=== PATIENT | female | born 1970 | race African-American/Black ===

== ENCOUNTER 2017-01-07 13:34 | Inpatient (IN) ==
[2017-01-07] MEDS ORDERED: TYLENOL PO ONE (13:50)
[2017-01-07 14:06] LABS: MANUAL DIFF NEEDED? NO
[2017-01-07 14:06] LABS: URINE SOURCE CLEAN CATCH
[2017-01-07 14:14] LABS: BASO% 0.1 % (0.0-0.8); EOS# 0.03 X1000 (0.0-0.7); EOS% 0.4 % (0.0-10.0); HEMATOCRIT 41.4 % (37.0-47.0); HEMOGLOBIN 13.9 g/dL (12.0-16.0); LYMPH# 1.24 X1000 (1.2-3.4); MCH 28.4 PG (27-31); MCHC 33.6 g/dL (33-37); MCV 84.7 FL (81-99); MONO# 0.86 X1000 (0.11-0.59); MONO% 11.1 % (1.7-9.3); MPV 10.1 FL (7.4-10.4); NEUT% 72.4 % (42.2-75.2); PLT 296 X1000 (130-400); RBC 4.89 XMIL (4.2-5.4)
[2017-01-07 14:14] LABS: BILIRUBIN URINE NEGATIVE (NEGATIVE); BLOOD URINE LARGE (NEGATIVE); COLOR YELLOW; GLUCOSE URINE NEGATIVE (NEGATIVE); LEUKOCYTES URINE LARGE (NEGATIVE); NITRITE URINE NEGATIVE (NEGATIVE); PROTEIN URINE 100 mg/dL (NEGATIVE); TURBIDITY URINE HAZY (CLEAR); UROBILINOGEN URINE NORMAL (NORMAL)
[2017-01-07 14:15] LABS: URINE MICRO REVIEW NEEDED? YES
[2017-01-07 14:18] LABS: UR EPITHELIAL CELLS >10 /HPF (<10); URINE BACTERIA 2+ /HPF; URINE CULTURE NEEDED? YES; URINE WBC TNTC /HPF (<10)
[2017-01-07 14:23] LABS: URINE CASTS NONE SEEN; URINE CRYSTALS NONE SEEN; URINE SMALL ROUND CELLS NONE SEEN
[2017-01-07 14:27] LABS: AGAP 16; ALKALINE PHOSPHATASE 49 U/L (32-104); BUN 10 mg/dL (8-22); CALCIUM 9.3 mg/dL (8.8-10.2); CHLORIDE 96 mmol/L (98-107); COSMO 274; GOT 18 U/L (10-30); GPT 12 U/L (10-36); POTASSIUM 3.7 mmol/L (3.5-5.1); SODIUM 137 mmol/L (136-145); TCO2 25 mmol/L (25-35); TOTAL PROTEIN 8.5 g/dL (6.3-8.3)
[2017-01-07] MEDS ORDERED: NS 1,000 ML IV ONE (15:51)
[2017-01-07] MEDS ORDERED: TORADOL IV ONE (15:51)
[2017-01-07] MEDS ORDERED: ZOFRAN IV ONE (15:51)
--- NOTE | 2017-01-07 15:57 | PROVIDER DOCUMENTATION ---
HPI-General Adult - General Chief Complaint: Fever Stated Complaint: NAUSEA,WEAKNESS Time Seen by Provider: 01/07/17 15:12 Source: patient Allergies/Adverse Reactions: Patient Allergies Allergy/AdvReac Type Severity Reaction Status Date / Time No Known Allergies Allergy Verified 01/07/17 14:54 Home Medications: Home Medication List Medication Instructions Recorded Confirmed Last Taken Type NK [No Home Medications] 01/07/17 01/07/17 Unknown History - History of Present Illness -Gen Adult Nature of Presenting Problems: 46 year old AAF presents with c/o fever, chills, body aches for 5 days, max temp 102.5 at home. pt report she was evaluated in an UC yesterday, diagnosed with a throat infection with negative strep/flu. sent home on levaquin and tylenol #3, advil, pt reports no improvement. she has had 2 doses of levaquin without improvement. pt reports associated nausea with vomiting x 4 today, decreased appetite and generalized not feeling well. pt reports tolerating fluids intermittently all day. Review of Systems - Adult - REVIEW OF SYSTEMS - ADULT Constitutional: reports: see HPI, chills, fever Eyes: reports: no symptoms reported. denies: discharge, blurred vision, double vision Ears, Nose, Mouth & Throat: reports: no symptoms reported. denies: ear discharge, ear pain, nose pain, loose teeth, throat pain, throat swelling Cardiovascular: reports: no symptoms reported. denies: chest pain, palpitations , syncope Respiratory: reports: see HPI, cough. denies: chronic cough, shortness of breath, wheezing Gastrointestinal: reports: no symptoms reported. denies: abdominal pain, diarrhea, nausea, vomiting Genitourinary: reports: no symptoms reported. denies: dysuria, hematuria, urgency Musculoskeletal: reports: no symptoms reported. denies: bone pain, joint pain, joint swelling, neck pain Integumentary: reports: no symptoms reported. denies: hives, itching, skin sores/ulcer Neurological: reports: no symptoms reported. denies: ataxia, dizziness/vertigo , numbness, paresthesia Psychiatric: reports: no symptoms reported Endocrine: reports: no symptoms reported Hematologic/Lymphatic: reports: no symptoms reported Allergic/Immunologic: reports: no symptoms reported. denies: frequent infections All Other Systems: Reviewed and Negative Past History - Adult - PAST MEDICAL HISTORY-ADULT Review of Records: reports: Old Records Reviewed, Nursing Assessment Review, Medications Reviewed, Social history reviewed & non-contributory. Major Childhood Illnesses: reports: denies history Cardiovascular: reports: denies history Respiratory: reports: denies history Gastrointestinal: reports: denies history Obstetrical/Gynecological: reports: denies history Genitourinary: reports: other (ovarian cyst, UTI) Musculoskeletal: reports: denies history Neurological: reports: denies history Endocrine/Immune: reports: denies history Other Conditions: reports: denies history - IMMUNIZATION STATUS Childhood Immunizations: See Nurse Assessment Flu Vaccine: See Nurse Assessment - FAMILY HISTORY Family History: reviewed, not pertinent - SOCIAL HISTORY Smoking: denies, non-smoker Substance Use: none/never Alcohol Use Frequency: never Physical Exam-General - PHYSICAL EXAM-ADULT Initial Vital Signs Reviewed: Yes - CONSTITUTIONAL General Appearance: appears well, alert, no apparent distress - EYES Eyes: pink conjunctivae. negative: conjuctival exudate, meningismus, pale conjunctivae, photophobia, sclera injected, scleral icterus, subconjunctival hemorrhage - HEAD, EARS, NOSE, MOUTH & THROAT HENMT: normocephalic/atraumatic, normal ENT inspection, TMs normal, pharynx normal. negative: moist mucous membranes (dry membranes) - NECK Neck: non-tender, full range of motion, supple, normal inspection. negative: C- spine tenderness, limited range of motion, tender lateral, tender midline - RESPIRATORY Respiratory: chest non-tender, lungs clear, normal breath sounds, no pleuratic chest pain, no respiratory distress, no accessory muscle use. negative: respiratory distress, decreased breath sounds, accessory muscle use, crackles, rales, rhonchi, stridor, wheezing - CARDIOVASCULAR Cardiovascular: normal peripheral pulses, regular rate, rhythm, tachycardia - GASTROINTESTINAL (ABDOMEN) Abdominal Exam: normal bowel sounds, non tender, soft. negative: distended, guarding, rigid, rebound, tenderness, hernia, mass - LYMPHATIC Lymphatic: negative: cervical node tenderness - MUSCULOSKELETAL Back Exam: normal inspection, no CVA tenderness, no vertebral tenderness. negative: CVA tenderness, decreased range of motion, swelling, vertebral tenderness Extremity: normal range of motion, non-tender, normal gait, normal inspection, no pedal edema, no calf tenderness, normal capillary refill. negative: deformity, erythema, swelling, tenderness Peripheral Pulses: radial (R): 3+, radial (L): 3+, dorsalis-pedis (R): 3+, dorsalis-pedis (L): 3+ - SKIN Integumentary: normal color, normal turgor, warm/dry. negative: mottled, pallor , petechiae, purpura, rash - NEUROLOGIC Neurologic: grossly normal, no motor/sensory deficits - PSYCHIATRIC Psych/Mental Status: normal mood/affect, normal thought content, normal thought process, oriented x 3 Progress - PLAN OF CARE/RESULTS Progress/Plan/Lab Results: Vital Signs - 8 hr 01/07/17 13:40 01/07/17 15:41 Temperature 102.8 F H 99.6 F Pulse Rate 118 H 95 H Respiratory Rate 20 18 Blood Pressure 131/85 105/70 O2 Sat by Pulse Oximetry 100 99 Laboratory Results - last 24 hr 01/07/17 01/07/17 01/07/17 13:53 13:53 13:55 WBC 7.75 RBC 4.89 Hgb 13.9 Hct 41.4 MCV 84.7 MCH 28.4 MCHC 33.6 RDW Std Deviation 13.4 Plt Count 296 MPV 10.1 Neut % (Auto) 72.4 Lymph % (Auto) 16.0 L Hyde % (Auto) 11.1 H Eos % (Auto) 0.4 Baso % (Auto) 0.1 Neut # (Auto) 5.61 Lymph # (Auto) 1.24 Hyde # (Auto) 0.86 H Eos # (Auto) 0.03 Baso # (Auto) 0.01 Sodium Potassium Chloride Carbon Dioxide Anion Gap BUN Creatinine Estimated GFR/1.73 m2 BUN/Creatinine Ratio Glucose Calculated Osmolality Calcium Total Bilirubin AST ALT Alkaline Phosphatase Total Protein Albumin Globulin Albumin/Globulin Ratio Plasma Lactate Urine Source CLEAN CATCH Urine Color YELLOW Urine Turbidity HAZY Urine pH 6.0 Ur Specific [place] 1.020 Urine Protein 100 A Ur Glucose (Stick) NEGATIVE Ur Ketones (Stick) 10 A Urine Blood LARGE A Urine Nitrite NEGATIVE Urine Bilirubin NEGATIVE Urobilinogen Dipstick NORMAL Urine Leukocytes LARGE A Urine WBC (Auto) TNTC A Urine RBC (Auto) 10-20 A U Epithel Cells (Auto) >10 A Urine Bacteria (Auto) 2+ Urine Crystals NONE SEEN Small Round Cells NONE SEEN Urine Casts NONE SEEN Urine Yeast-like Cells NONE SEEN Urine Test NEGATIVE 01/07/17 01/07/17 13:55 13:55 WBC RBC Hgb Hct MCV MCH MCHC RDW Std Deviation Plt Count MPV Neut % (Auto) Lymph % (Auto) Hyde % (Auto) Eos % (Auto) Baso % (Auto) Neut # (Auto) Lymph # (Auto) Hyde # (Auto) Eos # (Auto) Baso # (Auto) Sodium 137 Potassium 3.7 Chloride 96 L Carbon Dioxide 25 Anion Gap 16 BUN 10 Creatinine 0.9 Estimated GFR/1.73 m2 > 60 BUN/Creatinine Ratio 11 Glucose 116 H Calculated Osmolality 274 Calcium 9.3 Total Bilirubin 0.30 AST 18 ALT 12 Alkaline Phosphatase 49 Total Protein 8.5 H Albumin 4.0 Globulin 4.5 Albumin/Globulin Ratio 0.9 Plasma Lactate 1.2 Urine Source Urine Color Urine Turbidity Urine pH Ur Specific [place] Urine Protein Ur Glucose (Stick) Ur Ketones (Stick) Urine Blood Urine Nitrite Urine Bilirubin Urobilinogen Dipstick Urine Leukocytes Urine WBC (Auto) Urine RBC (Auto) U Epithel Cells (Auto) Urine Bacteria (Auto) Urine Crystals Small Round Cells Urine Casts Urine Yeast-like Cells Urine Test Orders Category Date Time Status CHEST-2 VIEWS [RAD] Stat Exams 01/07/17 15:51 Ordered CBC WITH ELECTRONIC DIFF [HEME] Stat Lab 01/07/17 13:55 Completed CMP [COMPREHENSIVE METABOLIC PANEL] [CHEM] Stat Lab 01/07/17 13:55 Completed LACTATE, PLASMA [CHEM] Stat Lab 01/07/17 13:55 Completed TEST-URINE [PREG] Stat Lab 01/07/17 13:53 Completed UA NIMS W/REFLEX CULT [URINALYSIS] Stat Lab 01/07/17 13:53 Completed URINE CULTURE [RM] Routine Lab 01/07/17 14:19 Received URINE MANUAL MICROSCOPIC [URINALYSIS] Stat Lab 01/07/17 13:53 Completed Acetaminophen [Tylenol] Med 01/07/17 13:50 Discontinued 650 mg PO NOW ONE Ketorolac [Toradol] Med 01/07/17 15:51 Once 30 mg IV NOW ONE Ns 1000 ml IV Bolus X1 Med 01/07/17 15:51 Ordered 0.9% Sodium Chloride Inj [Ns] 1,000 ml IV 999 mls/hr Ondansetron [Zofran] Med 01/07/17 15:51 Once 4 mg IV NOW ONE Reviewed radiology, H&P with Dr. Moses, agrees with admission, plan of care. Laboratory Tests 01/07/17 01/07/17 01/07/17 13:53 13:53 13:55 WBC 7.75 RBC 4.89 Hgb 13.9 Hct 41.4 MCV 84.7 MCH 28.4 MCHC 33.6 RDW Std Deviation 13.4 Plt Count 296 MPV 10.1 Neut % (Auto) 72.4 Lymph % (Auto) 16.0 L Hyde % (Auto) 11.1 H Eos % (Auto) 0.4 Baso % (Auto) 0.1 Neut # (Auto) 5.61 Lymph # (Auto) 1.24 Hyde # (Auto) 0.86 H Eos # (Auto) 0.03 Baso # (Auto) 0.01 Sodium Potassium Chloride Carbon Dioxide Anion Gap BUN Creatinine Estimated GFR/1.73 m2 BUN/Creatinine Ratio Glucose Calculated Osmolality Calcium Total Bilirubin AST ALT Alkaline Phosphatase Total Protein Albumin Globulin Albumin/Globulin Ratio Plasma Lactate Urine Source CLEAN CATCH Urine Color YELLOW Urine Turbidity HAZY Urine pH 6.0 Ur Specific [place] 1.020 Urine Protein 100 A Ur Glucose (Stick) NEGATIVE Ur Ketones (Stick) 10 A Urine Blood LARGE A Urine Nitrite NEGATIVE Urine Bilirubin NEGATIVE Urobilinogen Dipstick NORMAL Urine Leukocytes LARGE A Urine WBC (Auto) TNTC A Urine RBC (Auto) 10-20 A U Epithel Cells (Auto) >10 A Urine Bacteria (Auto) 2+ Urine Crystals NONE SEEN Small Round Cells NONE SEEN Urine Casts NONE SEEN Urine Yeast-like Cells NONE SEEN Urine Test NEGATIVE 01/07/17 01/07/17 13:55 13:55 WBC RBC Hgb Hct MCV MCH MCHC RDW Std Deviation Plt Count MPV Neut % (Auto) Lymph % (Auto) Hyde % (Auto) Eos % (Auto) Baso % (Auto) Neut # (Auto) Lymph # (Auto) Hyde # (Auto) Eos # (Auto) Baso # (Auto) Sodium 137 Potassium 3.7 Chloride 96 L Carbon Dioxide 25 Anion Gap 16 BUN 10 Creatinine 0.9 Estimated GFR/1.73 m2 > 60 BUN/Creatinine Ratio 11 Glucose 116 H Calculated Osmolality 274 Calcium 9.3 Total Bilirubin 0.30 AST 18 ALT 12 Alkaline Phosphatase 49 Total Protein 8.5 H Albumin 4.0 Globulin 4.5 Albumin/Globulin Ratio 0.9 Plasma Lactate 1.2 Urine Source Urine Color Urine Turbidity Urine pH Ur Specific [place] Urine Protein Ur Glucose (Stick) Ur Ketones (Stick) Urine Blood Urine Nitrite Urine Bilirubin Urobilinogen Dipstick Urine Leukocytes Urine WBC (Auto) Urine RBC (Auto) U Epithel Cells (Auto) Urine Bacteria (Auto) Urine Crystals Small Round Cells Urine Casts Urine Yeast-like Cells Urine Test Orders Category Date Time Status CHEST-2 VIEWS [RAD] Stat Exams 01/07/17 15:51 Completed BLOOD CULTURE [BLDCUL] Stat Lab 01/07/17 16:50 Uncollected CBC WITH ELECTRONIC DIFF [HEME] Stat Lab 01/07/17 13:55 Completed CMP [COMPREHENSIVE METABOLIC PANEL] [CHEM] Stat Lab 01/07/17 13:55 Completed LACTATE, PLASMA [CHEM] Stat Lab 01/07/17 13:55 Completed TEST-URINE [PREG] Stat Lab 01/07/17 13:53 Completed UA NIMS W/REFLEX CULT [URINALYSIS] Stat Lab 01/07/17 13:53 Completed URINE CULTURE [RM] Routine Lab 01/07/17 14:19 Received URINE MANUAL MICROSCOPIC [URINALYSIS] Stat Lab 01/07/17 13:53 Completed 0.9% Sodium Chloride Inj [Ns] 1,000 ml Med 01/07/17 15:51 Discontinued IV 999 mls/hr Acetaminophen [Tylenol] Med 01/07/17 13:50 Discontinued 650 mg PO NOW ONE CefTRIAXONE 1 GM/NS [Rocephin 1 gm/Ns] Med 01/07/17 16:02 Discontinued 1 gm in 50 ml IV NOW Ketorolac [Toradol] Med 01/07/17 15:51 Discontinued 30 mg IV NOW ONE Ondansetron [Zofran] Med 01/07/17 15:51 Discontinued 4 mg IV NOW ONE Vital Signs - 24 hr 01/07/17 13:40 01/07/17 15:41 Temperature 102.8 F H 99.6 F Pulse Rate 118 H 95 H Respiratory Rate 20 18 Blood Pressure 131/85 105/70 O2 Sat by Pulse Oximetry 100 99 Result Diagrams: 01/07/17 13:55 01/07/17 13:55 - XRAY 1 XRAY Study: Chest Impression: Abnormal (RUL pna, advise follow up until clear. per Dr. Mar.) - CONSULTS/PCP/HOSPITALIST Notification #1 *Consult/PCP/Hospitalist*: Eulalio will page Dr. Zurita for admisison Time Discussed: 16:50 Consult Disposition: Will see in ED, Admit Departure - Departure Date of Disposition Decision: 01/07/17 Time of Disposition Decision: 16:53 DIAGNOSIS: Pneumonia Qualifiers: Pneumonia type: due to unspecified organism Laterality: right Lung location: upper lobe of lung Qualified Code(s): J18.1 - Lobar pneumonia, unspecified organism UTI (urinary tract infection) Qualifiers: Urinary tract infection type: acute cystitis Hematuria presence: with hematuria Qualified Code(s): N30.01 - Acute cystitis with hematuria Disposition: ADMITTED INPATIENT 09 Certified Medical Emergency: Emergent Condition: Stable Referrals and Follow-Ups: Suzi Schroeder MD [Primary Care Provider] - - Critical Care Note This patient required my direct & personal management of CC.: No Attestation - Physician/ JOMAR Attestation Patient care was provided by Advanced Practice Provider:: Yes Advanced Practice Provider:: Ivan Trevino Advanced Practice Provider documentation review:: The Mid-level provider documentation, treatment plan and medical decision making was reviewed by the physician who agrees with all treatment and medical decision making by the MLP.
[2017-01-07] MEDS ORDERED: ROCEPHIN 1 GM/NS 1 GM/50 ML IVPB IV ONE (16:02)
--- NOTE | 2017-01-07 16:22 | Diag Imaging Result Doc PS360 ---
EXAM: CHEST-2 VIEWS HISTORY: cough, fever TECHNIQUE: PA and lateral COMMENT: There is dense alveolar opacification in the lateral portion of the right upper lobe. The heart size and primary vascularity are within normal limits. There are no previous studies. IMPRESSION: Right upper lobe pneumonia. Advise follow-up until clear. Electronically signed by Rj Mar 01/07/2017 4:20 PM
--- NOTE | 2017-01-07 18:04 | HISTORY AND PHYSICAL ---
CHIEF COMPLAINT: Fever, chills, and malaise. HISTORY OF PRESENT ILLNESS: Mrs. Freeman is a pleasant, 46-year-old female with no known medical history who presents to the ER with symptoms of malaise, fatigue, fever and chills since . Her symptoms actually began with a headache on which progressed to subjective fever and chills. On Friday she did have some throat pain, she went to a walk-in clinic and reports a negative flu and strep test and was given 2 days of Levaquin and codeine cough syrup. She reports having a fever of 102 degrees Fahrenheit today and came to the ER for continued pain and worsening symptoms. In the ER, she was noted to have a fever of 102 degrees Fahrenheit and her chest x-ray was consistent with right upper lobe pneumonia. Laboratory data is unremarkable at this time, she does have what appears to be a urinary tract infection, however, she denies any dysuria. As such, she is going to be admitted for community- acquired pneumonia, failed outpatient treatment. PAST MEDICAL HISTORY: None. PAST SURGICAL HISTORY: She has had an exploratory laparotomy and left salpingo oophorectomy done on 09/14/[address] Ellison. SOCIAL HISTORY: The patient works as [employer]. She reports a glass of wine a night. Denies tobacco or drug use. She has 2 children. FAMILY HISTORY: Noncontributory. REVIEW OF SYSTEMS: Fourteen-point review of systems was obtained and found to be negative with the exception of the HPI. ALLERGIES: No known allergies. HOME MEDICATIONS: Levaquin and codeine cough syrup, otherwise none. PHYSICAL EXAMINATION: VITAL SIGNS: Blood pressure is 105/70, heart rate is 95, respiratory rate of 16 , O2 saturation 99% on room air, temperature is 99.6 degrees with a T-max of 102.8 degrees, and a heart rate max of 118. GENERAL: Well developed, well-nourished, 46-year-old female, lying in hospital bed in no acute distress. NEUROLOGIC: The patient is awake, alert, and oriented. Follows commands, without focal deficits. HEENT: Head is atraumatic and normocephalic. Pupils equal, round, reactive to light. Oral mucosa is moist. Oropharynx is clear with perhaps some redness about the tonsils without exudate. NECK: Supple. Trachea is midline. No JVD. CHEST: Clear to auscultation. Diminished over the right upper lobe. CV: Regular rate and rhythm. S1, S2 is noted. No murmurs. GI: Soft, nondistended, nontender. Bowel sounds positive. EXTREMITIES: Without edema, clubbing or cyanosis. Pulses palpable bilaterally. DIAGNOSTIC DATA: Chest x-ray: Right upper lobe pneumonia. WBC 7.75, hemoglobin 13.9, hematocrit 41.4, platelet count 296,000. Sodium 137, potassium 3.7, chloride 96, CO2 25 , anion gap 16, BUN 10, creatinine 0.9, glucose is 116, calcium 9.3. LFTs within normal limits. UA shows significant WBC, RBC, bacteria and blood. Urine test is negative. ASSESSMENT AND PLAN: 1. Community-acquired pneumonia, failed outpatient treatment: Blood cultures have been obtained. We will start Rocephin and azithromycin, add breathing treatments and aggressive pulmonary toilet. We will continue IV fluid hydration and check a chest x-ray in the morning. 2. Sepsis: Patient meets criteria with tachycardia and fever as well as source of pneumonia. Garcia cultures have been obtained and we will continue with broad-spectrum antibiotics. Continue IV fluids. Lactic acid is within normal limits. Patient is hemodynamically stable, we will continue to monitor. 3. Bacteriuria: The patient denies any urinary symptoms, urine culture is pending. However, she is on good coverage for possible urinary tract infection with Rocephin. 4. Deep venous thrombosis prophylaxis with Lovenox. 5. Further recommendations to follow. Dictated by OPAL Holland for Kailash Zurita MD cc: OPAL Holland MD I have seen and examined patient and I agree with the above evaluation and plan. Patient did not give ample time foe levofloxacin to work so cant really say it was a failed outpatient therapy. Ass: sepsis secondary to right upper lobe pneumonia. Patient will be transfer to [facility] Dr Prado and the DIAGNOSTIC TECHNICIAN in [facility] have been notified by me. [facility]
[2017-01-07] MEDS ORDERED: DUONEB (A & A) INH PRN (20:24)
[2017-01-07] MEDS ORDERED: TUSSIONEX LIQUID PO PRN (20:24)
[2017-01-07] MEDS: NS 1,000 ML IV SCH (20:44)
[2017-01-07] MEDS: LOVENOX SUBQ SCH (20:45)
[2017-01-07] MEDS: ZITHROMAX 500 MG/NS 500 MG/250 ML IVPB IV SCH (20:45)
[2017-01-07] MEDS: TYLENOL PO PRN (21:08)
[2017-01-07] MEDS: DUONEB (A & A) INH SCH (21:49)
[2017-01-08] MEDS: DUONEB (A & A) INH SCH ×4 (04:21→20:59)
[2017-01-08] MEDS: NS 1,000 ML IV SCH ×2 (06:32→15:34)
--- NOTE | 2017-01-08 06:32 | Diag Imaging Result Doc PS360 ---
EXAM: CHEST-2 VIEWS HISTORY: Pneumonia TECHNIQUE: COMPARISON: 01/07/2017 FINDINGS: The lungs are well expanded. The heart is not enlarged. The vessels are not distended. Dense right upper lobe infiltrates persist. No pleural effusions. IMPRESSION: No interval improvement in the right upper lobe pneumonia. Electronically signed by Rashid Hsu 01/08/2017 6:29 AM
[2017-01-08 07:20] LABS: AGAP 12; BUN 14 mg/dL (8-22); CALCIUM 8.2 mg/dL (8.8-10.2); CHLORIDE 104 mmol/L (98-107); COSMO 276; POTASSIUM 3.7 mmol/L (3.5-5.1); SODIUM 138 mmol/L (136-145); TCO2 22 mmol/L (25-35)
[2017-01-08 08:04] LABS: HEMATOCRIT 34.3 % (37.0-47.0); HEMOGLOBIN 11.4 g/dL (12.0-16.0); MCH 27.5 PG (27-31); MCHC 33.2 g/dL (33-37); MCV 82.7 FL (81-99); MPV 10.1 FL (7.4-10.4); RBC 4.15 XMIL (4.2-5.4)
[2017-01-08] MEDS: TYLENOL PO PRN (09:15)
[2017-01-08] MEDS: DILAUDID IV PRN ×2 (09:15→22:03)
--- NOTE | 2017-01-08 12:41 | PROGRESS NOTE ---
DATE: 01/08/2017 SUBJECTIVE: The patient does have a headache today and a fever. She is lying in the bed, in no distress. OBJECTIVE: Vital Signs: Blood pressure is 131/74, with a heart rate of 96, respirations are 16, temperature is 101.7 degrees oral, with room air saturations of 98 to 100%. Cardiovascular: Regular rate and rhythm. S1 and S2 appreciated. Pulmonary: Breath sounds are clear with no increased work of breathing noted. Gastrointestinal: Abdomen is soft, nontender, nondistended, with bowel sounds in all 4 quadrants. Extremities: No clubbing, cyanosis, or edema. Calves are nontender. Pulses are palpable x4. DIAGNOSTICS: WBC is 6.53, with a hemoglobin of 11.4, hematocrit 34.3, and platelets of 284,000. Sodium is 138, potassium 3.7, BUN 14, creatinine 0.7, with a glucose of 97. Urine culture revealed no growth. Throat culture is pending. Chest x-ray revealed no interval improvement in the right upper lobe pneumonia. ASSESSMENT AND PLAN: 1. Community-acquired pneumonia. Failed outpatient treatment. 2. Sepsis. 3. Bacteriuria. Urine culture revealed no growth. 4. Deep vein thrombosis prophylaxis with Lovenox. PLAN: We will continue with the current regimen. We will add Acapella and incentive spirometer every 4 hours. Dictated by OPAL Fink for Felix Rebollar MD cc: OPAL Fink MD
[2017-01-08] MEDS ORDERED: ROCEPHIN 1 GM/NS 1 GM/50 ML IVPB IV SCH (17:00)
[2017-01-08] MEDS: LOVENOX SUBQ SCH (22:03)
[2017-01-08] MEDS: ZITHROMAX 500 MG/NS 500 MG/250 ML IVPB IV SCH (22:04)
[2017-01-09] MEDS: DUONEB (A & A) INH SCH ×2 (02:55→09:03)
[2017-01-09] MEDS: NS 1,000 ML IV SCH (03:37)
[2017-01-09 06:24] LABS: HEMOGLOBIN 10.3 g/dL (12.0-16.0); MCH 27.6 PG (27-31); MCHC 33.2 g/dL (33-37); MCV 83.1 FL (81-99); MPV 9.8 FL (7.4-10.4); RBC 3.73 XMIL (4.2-5.4)
[2017-01-09] MEDS ORDERED: ZITHROMAX 500 MG/NS 500 MG/250 ML IVPB IV SCH (06:37)
[2017-01-09 06:42] LABS: AGAP 11; BUN 6 mg/dL (8-22); CHLORIDE 105 mmol/L (98-107); COSMO 275; POTASSIUM 3.6 mmol/L (3.5-5.1); SODIUM 139 mmol/L (136-145); TCO2 24 mmol/L (25-35)
--- NOTE | 2017-01-09 08:28 | Diag Imaging Result Doc PS360 ---
EXAM: CHEST-2 VIEWS HISTORY: hypoxia TECHNIQUE: PA and lateral chest COMMENT: There is slight improvement in the alveolar opacification in the lateral right upper lobe compared to 01/08/2017. There are no additional findings. IMPRESSION: Slight improvement in right upper lobe pneumonia. Electronically signed by Rj Mar 01/09/2017 8:26 AM
[2017-01-09] MEDS: TYLENOL PO PRN (08:38)
[2017-01-09] MEDS ORDERED: OMNICEF PO SCH (09:00)
--- NOTE | 2017-01-09 09:00 | PROGRESS NOTE ---
DATE: 01/09/2017 SUBJECTIVE: The patient notes that she is feeling better. Still not sleeping well at night. Uncertain why she keeps waking up at night. Denies any chest pain, palpitations. Denies any shortness of breath currently. OBJECTIVE: Vital Signs: Reviewed. Temperature 99 degrees, pulse 78, respiratory rate 18, BP 118/65, saturation 98% on room air. General: Patient is awake, alert. Currently in no real respiratory distress. HEENT: Normocephalic, atraumatic. KATELYNN. Neck: Supple. CV: Regular rate. Chest: Relatively clear. Abdomen: Soft. Extremities: Moves all extremities. Neurologic: No changes. ASSESSMENT: 1. Pneumonia. Appears improved. Hopefully can discharge home later this afternoon. 2. Headache of uncertain etiology. Discussed with patient that it is unlikely that her headache will resolve in the hospital. However, she has no neurologic symptoms and no neurologic signs and no real reason to stay in the hospital. 3. Sepsis, resolved. PLAN: Hopefully can discharge home later this afternoon. Blood and urine cultures have been negative. cc: Felix Rebollar MD
[2017-01-09] MEDS ORDERED: NORCO-7.5 PO PRN (09:24)
[2017-01-09 13:30] VITALS: BP 128/68
--- NOTE | 2017-01-09 18:31 | DISCHARGE SUMMARY ---
ADMISSION DATE: 01/07/2017 DISCHARGE DATE: 01/09/2017 DISCHARGE DIAGNOSES: 1. Community-acquired pneumonia, failed outpatient treatment. 2. Headache of uncertain etiology, resolved. 3. Sepsis, resolved. MICROBIOLOGY: 1. Blood cultures x2 are no growth after 48 hours. 2. Urine culture revealed no growth. 3. Rapid strep is negative. 4. Influenza A and B are negative. 5. Throat culture revealed no strep isolated. DIAGNOSTICS: 1. 01/07/2017: Chest x-ray revealed right upper lobe pneumonia. 2. 01/08/2017: Chest x-ray revealed stable chest. 3. 01/09/2017: Chest x-ray revealed improvement in right upper lobe pneumonia. HOSPITAL COURSE: Ms. Freeman presented to the emergency room complaining of fever, chills, and malaise. She was noted to have a fever of 102 on arrival to the ER and was found to have right upper lobe pneumonia for which she was covered with Rocephin and azithromycin as well as breathing treatments and hydration. She did improve over the hospital course. She is feeling much better today and ready to go home. All cultures were negative. Over the last 24 hours her T max was 99. She has maintained oxygen saturations of 99-100% on room air. DISCHARGE PHYSICAL EXAMINATION: Cardiovascular: Regular rate and rhythm. S1 and S2 are appreciated. Pulmonary: Breath sounds are clear with no increased work of breathing noted. Chest does rise and fall symmetrically with respiration. Gastrointestinal: Abdomen is soft, nontender, nondistended with bowel sounds in all 4 quadrants. Extremities: No clubbing, cyanosis, or edema. Calves are nontender. Pulses are palpable x4. Neurologic: She is alert and oriented x3. Cranial nerves 2-12 are grossly intact. Discharge Vital Signs: Blood pressure is 128/68 with a heart rate of 78, respirations are 18, temperature is 98.8 degrees oral with room air saturations of 98-99%. DISCHARGE MEDICATIONS: Omnicef 300 mg p.o. b.i.d. FOLLOWUP: 1. She is to follow with her primary care physician in 1-2 weeks, sooner if needed. 2. She has been instructed to call or return to the emergency room for temperature greater than 101, shortness of breath, chest pain, dizziness, syncope or any questions or concerns that she may have. DISPOSITION: She is being discharged home in stable condition with family members. TIME SPENT: This is a greater than 30 minute discharge. Dictated by OPAL Fink for Felix Rebollar MD cc: OPAL Fink MD
[2017-01-09] MEDS ORDERED: ZITHROMAX PO SCH (22:00)
== END 2017-01-09 13:55 | disposition home or self-care (01) ==
LOC: ED 13:34 → P.MEDSURG 20:20 → SUATTDRO 20:20 → P.MEDSURG 20:24
PROVIDERS: ATTEND Family Medicine